=== PATIENT | male | born 1950 | race Caucasian/White ===

== ENCOUNTER 2017-05-25 11:26 | Inpatient (IN) | payer OTHER ==
[2017-05-25] MEDS ORDERED: ASPIRIN 81 MG CHEWABLE TAB ONE (11:31)
[2017-05-25] MEDS ORDERED: ASPIRIN 81 MG CHEWABLE TAB PO ONE (11:32)
[2017-05-25] MEDS ORDERED: NS 500 ML IV ONE (11:32)
--- NOTE | 2017-05-25 11:33 | EDPHY ---
H & P HPI/ROS: HPI CHIEF COMPLAINT: Chest pain recent cardiac stent HISTORY OF PRESENT ILLNESS: This patient is 66-year-old male, significant past medical history for coronary artery disease with a recent stent in his LAD he tells me 2 months ago. He is followed by Dr. Medina. Patient presents emergency room with chest pain. He states on Friday notice some chest discomfort. However today got worse substernal dull ache radiating to his left shoulder. He does tell me also when he takes a deep breath in he has pain. However his dull ache is constant now radiates to his left shoulder. Last night he tells me he did have some left arm pain. Past Medical History: Coronary disease with 1 stent, hypertension, hyperlipidemia Past Surgical History: Cardiac stent Social History: Denies daily use of drugs alcohol tobacco products Family History: Noncontributory ROS REVIEW OF SYSTEMS: A comprehensive 10 point review of systems is otherwise negative aside from elements mentioned in the history of present illness. Exam Constitutional appears well nontoxic, triage nursing summary reviewed, vital signs reviewed, awake/alert. Eyes normal conjunctivae and sclera, EOMI, PERRLA. HENT normal inspection, atraumatic, moist mucus membranes, no epistaxis, neck supple/ no meningismus, no raccoon eyes. Respiratory clear to auscultation bilaterally, normal breath sounds, no respiratory distress, no wheezing. Cardiovascular rate normal, regular rhythm, no murmur, no edema, distal pulses normal. Gastrointestinal soft, non-tender, no rebound, no guarding, normal bowel sounds, no distension, no pulsatile mass. Genitourinary no CVA tenderness. Musculoskeletal no midline vertebral tenderness, full range of motion, no calf swelling, no tenderness of extremities, no meningismus, good pulses, neurovascularly intact. Skin pink, warm, & dry, no rash, skin atraumatic. Neurologic awake, alert and oriented x 3, AAOx3, moves all 4 extremities equally, motor intact, sensory intact, CN II-XII intact, normal cerebellar, normal vision, normal speech. Psychiatric normal mood/affect. Heme/Lymph/Immune no lymphadenopathy. Differential diagnosis includes but is not limited to: ACS, atypical chest pain , pneumothorax, pneumonia, pulmonary embolism, aortic dissection, congestive heart failure, tumor, musculoskeletal pain, esophageal pain, GERD, peptic ulcer disease, pancreatitis Medical Decision Making: Plan for this patient full-dose aspirin, full school lunch monitor, EKG, chest x-ray, blood work, nitroglycerin. Re-evaluation: EKG interpretation by me on record in [employer] system. Impression time of EKG 11:35 a.m., this is sinus rhythm rate of 68, Q-waves in a anterior leads V1 V2 V3 very similar to his previous EKG dated 11/04/2014 I do not appreciate acute infarct on this current EKG there is no ST elevation SC. 1212: Patient receive full-dose aspirin here. Patient also had 2 nitroglycerin tabs was completely dissolved this chest pain. Currently chest pain 0/10. Patient's EKG is nonischemic or unchanged from previous EKG. Blood work pending at this time. ED x-ray chest one view: Negative for acute cardiopulmonary disease. Plan for this patient be admission to [facility] hospitalization for chest pain evaluation. Patient has risk factors with recent stent, underlying coronary artery disease, age, hyperlipidemia. Atypical chest pain story. 1213: Currently at this time this patient hemodynamically stable no acute distress resting comfortably. 1240PM: Patient is chest pain-free at this time. Patient be appropriately transferred over to [facility] PCU for chest pain evaluation. Patient agree for transfer by EMS. Patient agrees for transfer to the hospital. Spoke with Roseanne FIELDS, was signed this patient to Dr. Bey. Source: Patient Constitutional: Initial Vital Signs Temperature (C) 36.8 C 05/25/17 11:32 Heart Rate 76 05/25/17 11:32 Respiratory Rate 20 05/25/17 11:32 Blood Pressure 186/134 H 05/25/17 11:32 O2 Sat (%) 97 05/25/17 11:32 O2 Delivery Mode Nasal Cannula O2 (L/minute) 1 Allergies/Adverse Reactions: No Known Allergies Allergy (Verified 05/25/17 11:28) Home Medications: Medication Instructions Recorded Metoprolol Tartrate [Lopressor] 50 mg PO 09/09/12 Aspirin [Aspirin 81mg (OTC)] 81 mg PO DAILY 11/05/12 Cholesterol Med 11/05/12 Lisinopril [Zestril 10 mg (RX)] 10 mg PO DAILY 11/05/12 Vit D 11/05/12 Atorvastatin Calcium 05/25/17 Carvedilol 05/25/17 Hydrochlorothiazide 05/25/17 Plavix 05/25/17 Medical Decision Making - Diagnostics Imaging Results: Imaging Impressions Chest X-Ray 05/25/17 11:32 Impression: Clear lungs. Negative portable chest. - Data Points Laboratory Results: Laboratory Results 05/25/17 11:40 05/25/17 11:40 05/25/17 05/25/17 05/25/17 11:40 11:40 11:40 WBC 7.84 10^3/uL 10^3/uL (3.80-9.50) RBC 4.74 10^6/uL 10^6/uL (4.40-6.38) Hgb 16.7 g/dL g/dL (13.7-17.5) Hct 44.8 % % (40.0-51.0) MCV 94.5 fL fL (81.5-99.8) MCH 35.2 pg H pg (27.9-34.1) MCHC 37.3 g/dL H g/dL (32.4-36.7) RDW 11.7 % % (11.5-15.2) Plt Count 246 10^3/uL 10^3/uL (150-400) MPV 9.4 fL fL (8.7-11.7) Neut % (Auto) 54.5 % % (39.3-74.2) Lymph % (Auto) 31.4 % % (15.0-45.0) Cloud % (Auto) 9.4 % % (4.5-13.0) Eos % (Auto) 3.4 % % (0.6-7.6) Baso % (Auto) 1.0 % % (0.3-1.7) Nucleat RBC Rel Count 0.0 % % (0.0-0.2) Absolute Neuts (auto) 4.27 10^3/uL 10^3/uL (1.70-6.50) Absolute Lymphs (auto) 2.46 10^3/uL 10^3/uL (1.00-3.00) Absolute Monos (auto) 0.74 10^3/uL 10^3/uL (0.30-0.80) Absolute Eos (auto) 0.27 10^3/uL 10^3/uL (0.03-0.40) Absolute Basos (auto) 0.08 10^3/uL 10^3/uL (0.02-0.10) Absolute Nucleated RBC 0.00 10^3/uL 10^3/uL (0-0.01) Immature Gran % 0.3 % % (0.0-1.1) Immature Gran # 0.02 10^3/uL 10^3/uL (0.00-0.10) PT 13.0 SEC SEC (12.0-15.0) INR 1.01 (0.83-1.16) APTT 30.1 SEC SEC (23.0-38.0) D-Dimer < 0.27 ug/mLFEU ug/mLFEU (0.00-0.50) Sodium 141 mEq/L mEq/L (134-144) Potassium 4.4 mEq/L mEq/L (3.5-5.2) Chloride 107 mEq/L mEq/L (97-110) Carbon Dioxide 23 mEq/l mEq/l (22-31) Anion Gap 11 mEq/L mEq/L (8-16) BUN 16 mg/dL mg/dL (7-23) Creatinine 1.2 mg/dL mg/dL (0.7-1.3) Estimated GFR > 60 Glucose 93 mg/dL mg/dL (70-100) Calcium 8.8 mg/dL mg/dL (8.5-10.4) Magnesium 2.0 mg/dL mg/dL (1.6-2.3) Total Bilirubin 0.9 mg/dL mg/dL (0.1-1.4) Conjugated Bilirubin 0.3 mg/dL mg/dL (0.0-0.5) Unconjugated Bilirubin 0.6 mg/dL mg/dL (0.0-1.1) AST 29 IU/L IU/L (17-59) ALT 37 IU/L IU/L (21-72) Alkaline Phosphatase 104 IU/L IU/L (38-126) Creatine Kinase 57 IU/L IU/L (0-224) CK-MB (CK-2) Fraction 1.64 ng/mL ng/mL (0-4.55) Troponin I < 0.012 ng/mL ng/mL (0-0.034) NT-Pro-B Natriuret Pep 107 pg/mL pg/mL (0-125) Total Protein 6.7 g/dL g/dL (6.3-8.2) Albumin 3.8 g/dL g/dL (3.5-5.0) Lipase 107.0 IU/L IU/L (23-300) Medications Given: Discontinued Medications Aspirin (Aspirin) 324 mg PO EDNOW ONE Stop: 05/25/17 11:33 Last Admin: 05/25/17 11:35 Dose: 324 mg Sodium Chloride (Ns) 500 mls @ 1,000 mls/hr IV ONCE ONE PRN Reason: Protocol Stop: 05/25/17 12:01 Last Admin: 05/25/17 11:44 Dose: 500 mls Nitroglycerin (Nitrostat) 0.4 mg SL Q5M PRN PRN Reason: Chest Pain Stop: 05/25/17 11:43 Last Admin: 05/25/17 11:49 Dose: 0.4 mg Departure - Departure Disposition: [facility] Inpatient Acute Clinical Impression: Chest pain Qualifiers: Chest pain type: unspecified Qualified Code(s): R07.9 - Chest pain, unspecified Condition: Fair Referrals: Aminata Leo PA [Primary Care Provider] - As per Instructions
[2017-05-25] MEDS: NITROGLYCERIN 0.4 MG BTL SL PRN ×2 (11:44→11:49)
[2017-05-25 11:48] LABS: % IMMATURE GRANULYOCYTES 0.3 % (0.0-1.1); ABSOLUTE IMMATURE GRANULOCYTES 0.02 10^3/uL (0.00-0.10); ADD DIFF? NO; ADD MORPH? NO; ADD SCAN? NO; FRAGMENT RBC FLAG 0 (0-99); LEFT SHIFT FLG 0 (0-99); MEAN CELL VOLUME 94.5 fL (81.5-99.8); MEAN PLATELET VOLUME 9.4 fL (8.7-11.7)
[2017-05-25 11:51] LABS: ATYPICAL LYMPHOCYTE FLAG 20 (0-99); HEMATOCRIT 44.8 % (40.0-51.0); HEMOGLOBIN 16.7 g/dL (13.7-17.5); LIPEMIA HEMOLYSIS FLAG 90 (0-99); MEAN CELL HEMOGLOBIN 35.2 pg (27.9-34.1); MEAN CELL HEMOGLOBIN CONCENTR. 37.3 g/dL (32.4-36.7); PLATELET CLUMPS FLAG 0 (0-99); PLATELET COUNT 246 10^3/uL (150-400); RED BLOOD CELL COUNT 4.74 10^6/uL (4.40-6.38); RED CELL DISTRIBUTION WIDTH 11.7 % (11.5-15.2)
[2017-05-25 12:01] LABS: APTT 30.1 SEC (23.0-38.0); INR 1.01 (0.83-1.16)
[2017-05-25 12:07] LABS: ALANINE AMINOTRANSFERASE 37 IU/L (21-72); ALBUMIN 3.8 g/dL (3.5-5.0); ALKALINE PHOSPHATASE 104 IU/L (38-126); ANION GAP 11 mEq/L (8-16); ASPARTATE AMINOTRANSFERASE 29 IU/L (17-59); BILIRUBIN,TOTAL 0.9 mg/dL (0.1-1.4); BILIRUBIN-CONJUGATED 0.3 mg/dL (0.0-0.5); BILIRUBIN-UNCONJUGATED 0.6 mg/dL (0.0-1.1); CALCIUM 8.8 mg/dL (8.5-10.4); CARBON DIOXIDE 23 mEq/l (22-31); CHLORIDE 107 mEq/L (97-110); CREATININE 1.2 mg/dL (0.7-1.3); GLOMERULAR FILTRATION RATE > 60; GLUCOSE 93 mg/dL (70-100); POTASSIUM 4.4 mEq/L (3.5-5.2); SODIUM 141 mEq/L (134-144); TOTAL PROTEIN 6.7 g/dL (6.3-8.2)
[2017-05-25 12:14] LABS: CREATINE KINASE-MB FRACTION 1.64 ng/mL (0-4.55); TROPONIN I < 0.012 ng/mL (0-0.034)
--- NOTE | 2017-05-25 12:38 | CPEKG ---
Heart Rate: 68 RR Interval: 882 P-R Interval: 180 QRSD Interval: 86 QT Interval: 396 QTC Interval: 422 P [place]: 33 QRS [place]: 29 T Wave [place]: 17 EKG Severity - NORMAL ECG - EKG Impression: SINUS RHYTHM Electronically Signed By: Yeyo Rivera 29-May-2017 15:51:12
[2017-05-25] MEDS ORDERED: ACETAMINOPHEN 325 MG TAB PO PRN (15:00)
[2017-05-25] MEDS ORDERED: ONDANSETRON DISINTEGRATING 4 MG TAB PO PRN (15:00)
[2017-05-25] MEDS ORDERED: ONDANSETRON 4 MG/2 ML VIAL IVP PRN (15:00)
--- NOTE | 2017-05-25 15:24 | PDCPHP ---
History and Physical Chief Complaint: chest pain - History of Present Illness This is a 66 yo male with h/o CAD, ischemic cardiomyopathy, htn and hld with recent LAD stent placed in 02/2017 at [facility], who presented to [facility] with chest pain. He is followed by Dr. Rivera. Since his stent placement, he reports daily chest pain, usually in the morning. Several days prior to admission, he began to feel poorly, with a worsening dull ache in his chest. This is associated with nausea and can radiate to his left arm. He also c/o some SOB and describes a pleuritic chest pain at times, which he describes as pinching sensation. He denies diaphoresis. His pain is not necessarily associated with exertion. He denies orthopnea, PND or peripheral edema. He reports he has taken nitrates in the past and thinks he ran out of this medication shortly before his symptoms started. However, per review of [place] notes, I cannot confirm that he has taken nitrates. He is compliant with dual anti-platelet therapy. In the ED, he received a full dose ASA. Initial EKG and trop are negative. He is directly admitted to the PCU for further evaluation. Cardiac Risk Factors: hypertension (>140/90), lipidemia, family history of premature CAD, age > 65, male Timing/Duration: Days Severity: mild, moderate Location: substernal, shoulder Activities at Onset: none Modifying Factors: improves with: rest Associated Symptoms: nausea/vomiting, shortness of breath Additional Information: recent similar symptoms History Information - Allergies/Home Medication List Allergies/Adverse Reactions: No Known Allergies Allergy (Verified 05/25/17 11:28) Home Medications: Aspirin [Aspirin 81mg (OTC)] 81 mg PO DAILY 11/05/12 [Last Taken 05/25/17] Cholecalciferol Vit D3 [Vitamin D3 (*)] 5,000 units PO DAILY 11/05/12 [Last Taken 05/25/17] Atorvastatin Calcium [Lipitor 40 mg (*)] 40 mg PO DAILY 05/25/17 [Last Taken 01/10] Carvedilol [Coreg (*)] 3.125 mg PO BIDMEAL 05/25/17 [Last Taken 05/25/17 08:00] Clopidogrel Bisulfate [Plavix (*)] 75 mg PO DAILY 05/25/17 [Last Taken 05/25/17] Hydrochlorothiazide [HCTZ (*)] 25 mg PO DAILY 05/25/17 [Last Taken 05/25/17] Losartan Potassium [Cozaar] 100 mg PO DAILY 05/25/17 [Last Taken 05/25/17] I have personally reviewed and updated: family history, medical history, social history, surgical history - Past Medical History coronary artery disease, hypertension, hyperlipidemia Additional medical history: sleep apnea - Surgical History Additional surgical history: angiogram stent placement in 02/2017, hernia surgery - Family History Positive for: male first degree with history of premature CAD, myocardial infarction - Social History Smoking Status: Former smoker Alcohol Use: Occasionally Drug Use: None Additional social history: Lives with and kids. Works as a photographer motion picture. Quit smoking 25 yrs ago. Review of Systems ROS: 10pt was reviewed & negative except for what was stated in HPI & below [place] Risk Evaluation age greater or equal to 65: yes greater or equal to 3 CAD risk factors: yes known CAD(stenosis greater or eqaul to 50%): yes ASA use in past 7 days: yes severe angina(greater or equal to 2 episodes in 24hrs): yes EKG ST changes greater or equal to 0.5mm: no positive cardiac marker: no Total Score: 5 [place] Score: 26.2% risk Physical Exam Temp Pulse Resp BP Pulse Ox 36.4 C 60 16 163/95 H 95 05/25/17 14:18 05/25/17 14:18 05/25/17 14:18 05/25/17 14:18 05/25/17 14:18 O2 (L/minute) 1 Constitutional: no apparent distress Eyes: PERRL Ears, Nose, Mouth, Throat: moist mucous membranes Cardiovascular: regular rate and rhythym, no murmur, rub, or gallop Respiratory: no respiratory distress, clear to auscultation Gastrointestinal: normoactive bowel sounds, soft, non-tender abdomen Skin: warm Musculoskeletal: full muscle strength Neurologic: AAOx3 Psychiatric: interacting appropriately Lab Data & Imaging Review 05/25/17 11:40 05/25/17 11:40 WBC 7.84 10^3/uL (3.80-9.50) 05/25/17 11:40 RBC 4.74 10^6/uL (4.40-6.38) 05/25/17 11:40 Hgb 16.7 g/dL (13.7-17.5) 05/25/17 11:40 Hct 44.8 % (40.0-51.0) 05/25/17 11:40 MCV 94.5 fL (81.5-99.8) 05/25/17 11:40 MCH 35.2 pg (27.9-34.1) H 05/25/17 11:40 MCHC 37.3 g/dL (32.4-36.7) H 05/25/17 11:40 RDW 11.7 % (11.5-15.2) 05/25/17 11:40 Plt Count 246 10^3/uL (150-400) 05/25/17 11:40 MPV 9.4 fL (8.7-11.7) 05/25/17 11:40 Neut % (Auto) 54.5 % (39.3-74.2) 05/25/17 11:40 Lymph % (Auto) 31.4 % (15.0-45.0) 05/25/17 11:40 [place] % (Auto) 9.4 % (4.5-13.0) 05/25/17 11:40 Eos % (Auto) 3.4 % (0.6-7.6) 05/25/17 11:40 Baso % (Auto) 1.0 % (0.3-1.7) 05/25/17 11:40 Nucleat RBC Rel Count 0.0 % (0.0-0.2) 05/25/17 11:40 Absolute Neuts (auto) 4.27 10^3/uL (1.70-6.50) 05/25/17 11:40 Absolute Lymphs (auto) 2.46 10^3/uL (1.00-3.00) 05/25/17 11:40 Absolute Monos (auto) 0.74 10^3/uL (0.30-0.80) 05/25/17 11:40 Absolute Eos (auto) 0.27 10^3/uL (0.03-0.40) 05/25/17 11:40 Absolute Basos (auto) 0.08 10^3/uL (0.02-0.10) 05/25/17 11:40 Absolute Nucleated RBC 0.00 10^3/uL (0-0.01) 05/25/17 11:40 Immature Gran % 0.3 % (0.0-1.1) 05/25/17 11:40 Immature Gran # 0.02 10^3/uL (0.00-0.10) 05/25/17 11:40 PT 13.0 SEC (12.0-15.0) 05/25/17 11:40 INR 1.01 (0.83-1.16) 05/25/17 11:40 APTT 30.1 SEC (23.0-38.0) 05/25/17 11:40 D-Dimer < 0.27 ug/mLFEU (0.00-0.50) 05/25/17 11:40 Sodium 141 mEq/L (134-144) 05/25/17 11:40 Potassium 4.4 mEq/L (3.5-5.2) 05/25/17 11:40 Chloride 107 mEq/L (97-110) 05/25/17 11:40 Carbon Dioxide 23 mEq/l (22-31) 05/25/17 11:40 Anion Gap 11 mEq/L (8-16) 05/25/17 11:40 BUN 16 mg/dL (7-23) 05/25/17 11:40 Creatinine 1.2 mg/dL (0.7-1.3) 05/25/17 11:40 Estimated GFR > 60 05/25/17 11:40 Glucose 93 mg/dL (70-100) 05/25/17 11:40 Calcium 8.8 mg/dL (8.5-10.4) 05/25/17 11:40 Magnesium 2.0 mg/dL (1.6-2.3) 05/25/17 11:40 Total Bilirubin 0.9 mg/dL (0.1-1.4) 05/25/17 11:40 Conjugated Bilirubin 0.3 mg/dL (0.0-0.5) 05/25/17 11:40 Unconjugated Bilirubin 0.6 mg/dL (0.0-1.1) 05/25/17 11:40 AST 29 IU/L (17-59) 05/25/17 11:40 ALT 37 IU/L (21-72) 05/25/17 11:40 Alkaline Phosphatase 104 IU/L (38-126) 05/25/17 11:40 Creatine Kinase 57 IU/L (0-224) 05/25/17 11:40 CK-MB (CK-2) Fraction 1.64 ng/mL (0-4.55) 05/25/17 11:40 Troponin I < 0.012 ng/mL (0-0.034) 05/25/17 11:40 NT-Pro-B Natriuret Pep 107 pg/mL (0-125) 05/25/17 11:40 Total Protein 6.7 g/dL (6.3-8.2) 05/25/17 11:40 Albumin 3.8 g/dL (3.5-5.0) 05/25/17 11:40 Lipase 107.0 IU/L (23-300) 05/25/17 11:40 Visualized and Interpreted Chest x-ray results: Yes Chest X-Ray results: no infiltrate, normal Visualized and Interpreted EKG results: Yes EKG Interpretation: Positive for: normal sinsus rhythm Assessment and Plan Assessment: Chest pain in 66 yo male with h/o CAD, ischemic cardiomyopathy, hypertension, hyperlipidemia and KINZA. LAD stent placed 02/2017, compliant with DAPT. He reportedly had another vessel with 70% stenosis which was not intervened upon. Echo from 03/2017 reviewed - nl EF of 60% without WMA. Initial EKG and trop are negative. Pt appears comfortable. Suspect ongoing anginal symptoms. Plan: * admit as observation to PCU * continuous telemetry to monitor for ST segment changes * monitor vital signs every 4 hours * continue dual-antiplatelet therapy, BB, statin * morphine sulfate IV and nitroglycerin sublingual as needed for chest pain, consider addition of imdur * repeat EKG now to assess for dynamic changes and as needed for recurrent chest pain * repeat troponin in 4-6 hours after onset of chest pain * cardiology is consulted and will evaluate patient to determine need for invasive testing
--- NOTE | 2017-05-25 15:28 | CPEKG ---
Heart Rate: 64 RR Interval: 938 P-R Interval: 184 QRSD Interval: 84 QT Interval: 432 QTC Interval: 446 P [place]: 16 QRS [place]: 30 T Wave [place]: 20 EKG Severity - NORMAL ECG - EKG Impression: SINUS RHYTHM Electronically Signed By: Maximilian Valerio 26-May-2017 08:09:01
[2017-05-25] MEDS ORDERED: NITROGLYCERIN 0.4 MG BTL SL PRN (15:50)
--- NOTE | 2017-05-25 16:26 | PDCARPN ---
Cardiology Progress Note Assessment/Plan: 66-year-old male with a history of CAD s/p PCI of a high grade LAD lesion at [facility] on 02/22/17. He has residual ostial diagonal disease. Presents to the hospital with chest discomfort this morning located substernal and described as a pulsating sensation "like heart is pumping too hard". Had similar symptoms at the time of his presentation to [facility] and reports that they have never completely resolved. No associated diaphoresis. Some shortness of breath/dyspnea on exertion which he relates to deconditioning. Initial ECG, troponin, and BNP all normal. Serial cardiac enzymes. NPO after midnight for cath versus stress evaluation tomorrow. 05/25/17 16:25 Subjective: Morning chest pains getting worse. Objective: Vital Signs (8 Hrs) Temp Pulse Resp BP Pulse Ox 05/25/17 14:18 36.4 C 60 16 163/95 H 95 05/25/17 13:36 36.8 C 62 16 157/104 H 99 Intake/Output (24 Hrs) 05/24/17 05/25/17 05/26/17 05:59 05:59 05:59 Intake Total 500 Balance 500 Intake: IV Infused (ml) 500 Other: Weight 100.3 kg Result Diagrams: 05/25/17 11:40 05/25/17 11:40 Cardiac Labs: Cardiac Lab Results (72 Hrs) 05/25/17 15:51 Troponin I < 0.012 - Physical Exam Constitutional: no apparent distress, obese Eyes: anicteric sclera Ears, Nose, Mouth, Throat: moist mucous membranes Cardiovascular: regular rate and rhythm, no murmurs, no rubs, no gallops Respiratory: clear to auscultate bilat Gastrointestinal: normoactive bowel sounds, no tenderness, no masses Skin: no rashes, no edema Neurologic: AAOx3 Psychiatric: not anxious ICD10 Worksheet Patient Problems: Problems Problem Status Onset Chest pain Acute
[2017-05-25] MEDS: CARVEDILOL 3.125 MG TAB PO SCH (17:55)
[2017-05-26] MEDS: ASPIRIN 81 MG CHEWABLE TAB PO SCH (08:15)
[2017-05-26] MEDS: LOSARTAN POTASSIUM 50 MG TAB PO SCH (08:15)
[2017-05-26] MEDS: ATORVASTATIN CALCIUM 40 MG TAB PO SCH (08:15)
[2017-05-26] MEDS ORDERED: NON-FORMULARY NEW DRUG (Losartan Potassium [Cozaar] 100 MG) PO SCH (09:00)
[2017-05-26] MEDS: CLOPIDOGREL BISULFATE 75 MG TAB PO SCH (10:37)
[2017-05-26] MEDS: CARVEDILOL 3.125 MG TAB PO SCH ×2 (10:56→18:54)
[2017-05-26] MEDS: HYDROCHLOROTHIAZIDE 25 MG TAB PO SCH (11:00)
[2017-05-26] MEDS ORDERED: FAMOTIDINE 20 MG TAB PO ONE (11:02)
[2017-05-26] MEDS ORDERED: NS 1,000 ML IV ONE (11:02)
[2017-05-26] MEDS ORDERED: ASPIRIN EC 325 MG TAB PO ONE (11:02)
[2017-05-26] MEDS ORDERED: DIAZEPAM 5 MG TAB PO ONE (11:02)
[2017-05-26] MEDS ORDERED: diphenhydrAMINE 25 MG CAP PO ONE (11:02)
[2017-05-26] MEDS ORDERED: IOPAMIDOL (ISOVUE-370) 150 ML BTL IV ONE ×2 (11:17→11:53)
[2017-05-26] MEDS ORDERED: fentaNYL 100 MCG/2 ML INJ ONE ×2 (11:17→11:53)
[2017-05-26] MEDS ORDERED: LIDOCAINE 1% 300 MG/30 ML SDV ONE ×2 (11:17→14:54)
[2017-05-26] MEDS ORDERED: MIDAZOLAM 2 MG/2 ML VIAL ONE ×2 (11:17→11:55)
[2017-05-26] MEDS ORDERED: NITROGLYCERIN 1,500 MCG/15 ML VIAL MISC ONE (11:51)
[2017-05-26] MEDS ORDERED: BIVALIRUDIN 250 MG/5 ML VIAL IV ONE (11:51)
--- NOTE | 2017-05-26 12:32 | PDCARPN ---
Cardiology Progress Note Chief Complaint: Continued complaints of chest discomfort (very similar to that which was noted prior to PCI of the LAD 02/22/17) Assessment/Plan: Assessment: Patient is a 66 y/o male with history of CAD s/p recent PCI to the LAD ([facility] 02/22/17), with KINZA, HTN, and HLP, who presented to [facility] with complaints of chest discomfort. Discomfort was reportedly very similar to that which was being noted at the time of the intervention to the LAD. Reports of "ischaemic cardiomyopathy" were also noted in the admission noted. Discussion with patient , who typically follows with me in the outpatient setting about options, of which there are two: (1) Non invasive stress testing and (2) repeat angiography. More definitive answer would come from the angiography. Compliance with medical therapy has been good (ASA and Plavix in particular). Plan: Given the similarity of the symptoms, we have opted to repeat angiography. Patient with understanding of the risks and benefits. Further recommendations after testing has been completed. Subjective: Chest pain with associated PND and orthopnea. Reviewed/Discussed With: hospitalist, multidisciplinary team Objective: Vital Signs (8 Hrs) Temp Pulse Resp BP Pulse Ox 05/26/17 11:35 36.5 C 65 20 143/87 H 93 05/26/17 10:56 64 143/87 H 05/26/17 07:36 36.5 C 70 12 133/74 H 94 Intake/Output (24 Hrs) 05/25/17 05/26/17 05/27/17 05:59 05:59 05:59 Intake Total 1750 Output Total 1900 600 Balance -150 -600 Intake: Oral (ml) 1250 IV Infused (ml) 500 Output: Urine (ml) 1900 600 Toilet 1900 Urinal 600 Other: Weight 100.3 kg Number of Voids Toilet 3 Result Diagrams: 05/25/17 11:40 05/25/17 11:40 Cardiac Labs: Cardiac Lab Results (72 Hrs) 05/25/17 05/25/17 21:38 15:51 Troponin I < 0.012 < 0.012 EKG: Normal sinus rhythm without appreciable ST/T wave changes noted. Telemetry: Normal sinus rhythm - Physical Exam Constitutional: WDWN, healthy appearing, obese, apparent distress (chest pains continue to be noted (2 at the time of evaluation)) Eyes: PERRL, EOMI Ears, Nose, Mouth, Throat: moist mucous membranes Cardiovascular: regular rate and rhythm, no murmurs, no rubs, no gallops Peripheral Pulses: 2+: dorsalis-pedis (R), dorsalis-pedis (L) Respiratory: clear to auscultate bilat, no crackles, no wheezes Gastrointestinal: normoactive bowel sounds Skin: no rashes, no edema Musculoskeletal: no muscular tenderness Neurologic: AAOx3, CN II-XII grossly intact Psychiatric: cooperative, interactive, following commands ICD10 Worksheet Patient Problems: Problems Problem Status Onset Chest pain Acute
--- NOTE | 2017-05-26 12:42 | PDDXCAT ---
Diagnostic Cath Note - . Date: 05/26/17 Point Of Care Technician: Miguel Indication: CCC Class III and IV angina on medical treatment - Procedure Access: right groin Procedure: left heart catheterization, coronary angiography, left ventriculogram - Materials Left Heart Cath size: 6F Left Heart Cath materials: standard multipack (JL4, JR4, pigtail) - Findings-Left Heart Catheterization LM: Short vessel with bifurcation into the LAD and LCX systems. No appreciable luminal irregularities noted. LAD: Medium sized vessel with large principal diagonal. Questionable luminal irregularities just proximal to the stent (eccentric lesion is suggested given haziness noted in some views, but not others). There were two septal perforators that were jailed by stent placement to the LAD as well. LCX: Medium sized vessel with two small OMs (1/2) in the proximal vessel. The third OM is large with branches. No luminal irregularities were noted. Codominant supply to the PDA system. RCA: Small to medium sized vessel without critical luminal irregularites noted. EDP: 25 mm Hg LVEF: 50-55% Wall motion: Mild anterior wall hypokinesis was noted Complications: none ... access was low secondary to pains from recent angiography Estimated blood loss: <50ml Closure method: manual pressure Assessment: 66 y/o male with history of CAD s/p recent PCI to the LAD, HTN, KINZA , and HLP, with what appears to be some haziness to the proximal portion of the stent. No "new" lesions were identified. There were two septal perforators that were jailed by the placement of the LAD stent, and they could be contributing to the symptoms that are being noted (but no troponin leak or ECG changes were noted). Plan: Dr. Mell Mathis to perform IVUS of the LAD to determine if there are lesions proximal to the stented region. Intervention: pending Patient Problems: Problems Problem Status Onset Chest pain Acute
--- NOTE | 2017-05-26 14:29 | CPIP ---
[f rep st] INVASIVE CARDIAC PROCEDURE DATE OF PROCEDURE: 05/26/2017 PROCEDURE: Intravascular ultrasound of the left anterior descending. INDICATION: Mr. Omar Caballero was taken the catheterization laboratory by Dr. Yeyo Rivera because of an indication of angina post stent implantation. He was noted to have ostial stenosis of 2 sept al branches which could be responsible for his angina; however, there was an area just proximal to t he stent that Dr. Rivera was concerned may represent an inflow problem into the stents, so I was ask ed us to see the patient for intraoperative consultation for intravascular ultrasound of the LAD keena nt. DESCRIPTION OF PROCEDURE: The 6-Palauan sheath had already been established by Dr. Rivera in the com mon femoral artery. J-wire was advanced under direct fluoroscopic guidance into the ascending thora cic aorta. A 6-Palauan EBU 3.5 guiding catheter was used for guide catheter support. A 0.014 Intuit ion wire was advanced across the lesion in the LAD and the stented segment, and the patient underwen t intravascular ultrasound of the LAD. Intravascular ultrasound demonstrated that the LAD lumen is widely patent. However, the patient has severe atherosclerosis often with greater than 50% of the t otal area of the vessel within the external elastic lamina. External elastic lamina was noted to be full of eccentric and concentric plaque. The stented segment of the vessel shows good stent geomet ry with good [id number] wall apposition along the entire length of the stent. There was no ness dence of flow-limiting obstruction, dissection or thrombus proximal or distal to the stented segment . The LAD was widely patent. The patient had the procedure performed with a bolus and infusion of Angiomax documented with an ACT greater than 300 prior to instrumentation of the coronary. FINAL IMPRESSION: 1. Intravascular ultrasound shows evidence of severe atherosclerosis with often greater than 50% pl aque area narrowing of the blood vessel throughout the proximal and mid left anterior descending. T his plaque development does place the patient at risk for heart attack and angina. 2. No evidence of flow-limiting obstruction, dissection, thrombus or subacute stent thrombosis is i dentified on intravascular ultrasound of a left anterior descending stent. I would suspect the waylon ent's source of angina is most likely septal perforators which were partially compromised by stent i mplantation. Copy requested to: [facility] /[id number]/MODL
[2017-05-26] MEDS ORDERED: HYDROCODONE/APAP 5/325 TAB PO PRN (16:22)
[2017-05-26] MEDS ORDERED: NITROGLYCERIN 0.4 MG BTL SL PRN (16:22)
[2017-05-26] MEDS ORDERED: ATROPINE SULFATE 1 MG/10 ML SYR IVP PRN (16:22)
[2017-05-26] MEDS ORDERED: OXYCODONE/APAP 5/325 TAB PO PRN (16:22)
[2017-05-26] MEDS ORDERED: ONDANSETRON 4 MG/2 ML VIAL IVP PRN (16:22)
--- NOTE | 2017-05-26 17:18 | HOSPPROG ---
Hospitalist Progress Note Assessment/Plan: 66 yo male with CAD and recent LAD stent placed in 02/2017 presents with ongoing chest pain, suspicious for anginal symptoms. Chest pain - EKG non-ischemic. Trops neg x3. Pt cath'd this am- no obstructive disease at LAD, but "jailed" septal perforators suspected source of angina. -start Imdur 30 mg daily, up-titrate as tolerated -cont DAPT, BB, statin Hypertension - poorly controlled on arrival. Improved with addition of low dose Norvasc. -dc Norvasc in favor of nitrates as above -consider up-titration of coreg at dc if BP's remain above goal Hyperlipidemia - cont statin KINZA - pt awaiting CPAP in outpt setting Full code DVT PPLX - SCD's, ambulation. If he doesn't dc in am, would add Lovenox Dispo - change to inpt due to ongoing monitoring needed post-cath, home in am Subjective: Pt feels better this am. No significant CP. No SOB. Objective: Vital Signs Temp Pulse Resp BP Pulse Ox 36.5 C 65 20 143/87 H 93 05/26/17 11:35 05/26/17 11:35 05/26/17 11:35 05/26/17 11:35 05/26/17 11:35 05/25/17 05/26/17 05/27/17 05:59 05:59 05:59 Intake Total 1750 Output Total 1900 600 Balance -150 -600 PT 13.0 SEC (12.0-15.0) 05/25/17 11:40 INR 1.01 (0.83-1.16) 05/25/17 11:40 - Physical Exam Constitutional: no apparent distress Eyes: PERRL Ears, Nose, Mouth, Throat: moist mucous membranes Cardiovascular: regular rate and rhythym Respiratory: no respiratory distress, clear to auscultation Gastrointestinal: normoactive bowel sounds, soft, non-tender abdomen Skin: warm Musculoskeletal: full muscle strength Neurologic: AAOx3 Psychiatric: interacting appropriately ICD10 Worksheet Patient Problems: Problems Problem Status Onset Chest pain Acute
[2017-05-27 08:34] VITALS: BP 143/88; PULSE 68; RESP 15; TEMP 97.7; O2SAT 97
[2017-05-27] MEDS ORDERED: ISOSORBIDE MONONITRATE 30 MG TAB.SR PO SCH (09:00)
--- NOTE | 2017-05-27 09:35 | PDCARPN ---
Cardiology Progress Note Chief Complaint: Patient doing well today. Good sleep overnight Assessment/Plan: Assessment: 05-27-17 No cardiovascular complaints this morning. Ongoing right groin pains (no worse) , and patient voicing that he has concerns about this being the area where hernia surgery was repaired in the past. Good sleep overnight. Patient wanting to go home. Discussion about the angiogram findings from day prior ( and our concerns that some of the chest pains may be secondary to "jailed" septal perforators that were lost with the placement of the LAD stent. 05-26-17 Patient is a 66 y/o male with history of CAD s/p recent PCI to the LAD ([facility] 02/22/17), with KINZA, HTN, and HLP, who presented to [facility] with complaints of chest discomfort. Discomfort was reportedly very similar to that which was being noted at the time of the intervention to the LAD. Reports of "ischaemic cardiomyopathy" were also noted in the admission noted. Discussion with patient , who typically follows with me in the outpatient setting about options, of which there are two: (1) Non invasive stress testing and (2) repeat angiography. More definitive answer would come from the angiography. Compliance with medical therapy has been good (ASA and Plavix in particular). Plan: (1) From a cardiovascular standpoint, the patient can be discharged to home (2) Would add low dose, long acting nitrates (30 mg per day) of the long acting formulation (3) Outpatient follow up with cardiology in 7-10 days (4) Would consider outpatient consultation with surgery given voiced concerns about discomfort to the location of prior hernia surgery (5) Maintain outpatient medical therapies as at present Subjective: No cardiovascular complaints Reviewed/Discussed With: multidisciplinary team Objective: Vital Signs (8 Hrs) Temp Pulse Resp BP Pulse Ox 05/27/17 08:00 36.5 C 68 15 143/88 H 97 05/27/17 04:00 36.6 C 72 16 130/81 H 94 Intake/Output (24 Hrs) 05/26/17 05/27/17 05/28/17 05:59 05:59 05:59 Intake Total 300 Output Total 525 Balance -225 Intake: Oral (ml) 300 Output: Urine (ml) 525 Urinal 525 Other: Number of Voids Toilet 2 Urinal 3 Result Diagrams: 05/25/17 11:40 05/25/17 11:40 Telemetry: normal sinus rhythm - Physical Exam Constitutional: WDWN, healthy appearing, no apparent distress, obese Eyes: PERRL, EOMI Ears, Nose, Mouth, Throat: moist mucous membranes Cardiovascular: regular rate and rhythm, no murmurs, no rubs, no gallops Peripheral Pulses: 2+: dorsalis-pedis (R), dorsalis-pedis (L) Respiratory: clear to auscultate bilat, no crackles, no wheezes Gastrointestinal: normoactive bowel sounds Genitourinary: other (mild, lower suprapubic tenderness (query hernia)) Skin: no rashes, no edema Musculoskeletal: no muscular tenderness Neurologic: AAOx3, CN II-XII grossly intact Psychiatric: cooperative, interactive, following commands ICD10 Worksheet Patient Problems: Problems Problem Status Onset Chest pain Acute
[2017-05-27] MEDS: CARVEDILOL 3.125 MG TAB PO SCH (10:06)
[2017-05-27] MEDS: CLOPIDOGREL BISULFATE 75 MG TAB PO SCH (10:06)
[2017-05-27] MEDS: HYDROCHLOROTHIAZIDE 25 MG TAB PO SCH (10:07)
[2017-05-27] MEDS: ASPIRIN 81 MG CHEWABLE TAB PO SCH (10:07)
[2017-05-27] MEDS: ATORVASTATIN CALCIUM 40 MG TAB PO SCH (10:07)
[2017-05-27] MEDS: LOSARTAN POTASSIUM 50 MG TAB PO SCH (10:07)
--- NOTE | 2017-05-27 10:32 | HOSPPROG ---
Hospitalist Progress Note Assessment/Plan: 66 yo male with CAD and recent LAD stent placed in 02/2017 presents with ongoing chest pain, suspicious for anginal symptoms. Chest pain - EKG non-ischemic. Trops neg x3. Pt cath'd this am- no obstructive disease at LAD, but "jailed" septal perforators suspected source of angina. -start Imdur 30 mg daily, up-titrate as tolerated -cont DAPT, BB, statin Hypertension - poorly controlled on arrival. Improved with addition of low dose Norvasc. -dc Norvasc in favor of nitrates as above -consider up-titration of coreg at dc if BP's remain above goal Hyperlipidemia - cont statin KINZA - pt awaiting CPAP in outpt setting Full code home today >30 minutes Subjective: feels well, ready for dc. no events on tele. case d/w cardiology Objective: Vital Signs Temp Pulse Resp BP Pulse Ox 36.5 C 68 15 143/88 H 97 05/27/17 08:00 05/27/17 08:00 05/27/17 08:00 05/27/17 08:00 05/27/17 08:00 05/26/17 05/27/17 05/28/17 05:59 05:59 05:59 Intake Total 300 Output Total 525 Balance -225 PT 13.0 SEC (12.0-15.0) 05/25/17 11:40 INR 1.01 (0.83-1.16) 05/25/17 11:40 - Physical Exam Constitutional: no apparent distress, appears nourished Eyes: PERRL, anicteric sclera Ears, Nose, Mouth, Throat: moist mucous membranes, hearing normal Cardiovascular: regular rate and rhythym, no murmur, rub, or gallop, other ( groin c.d.i) Respiratory: no respiratory distress, no rales or rhonchi Gastrointestinal: normoactive bowel sounds, soft, non-tender abdomen Genitourinary: no bladder fullness, No caban in urethra Skin: warm, normal color Musculoskeletal: full muscle strength, no muscle tenderness Neurologic: AAOx3 Psychiatric: interacting appropriately ICD10 Worksheet Patient Problems: Problems Problem Status Onset Chest pain Acute
--- NOTE | 2017-05-27 15:47 | GDS ---
[f rep st] DISCHARGE SUMMARY DISCHARGE DIAGNOSES: 1. Angina felt secondary to occluded septal perforators from recent LAD stent. 2. History of coronary disease. 3. Hypertension. 4. Hyperlipidemia. 5. Inguinal hernia repair. HOSPITAL COURSE: Please see admission History and Physical by Dr. Connie Bye. The patient prese nted on the afternoon of the 2nd with chest pain of similar nature to his anginal equivalent. He willoughby d a dull ache in his chest which occasionally radiated to his left arm. He had negative troponins. He was seen by Cardiology. He was taken to a cath, showed evidence of patent stent leading to the conclusion the patient has septal perforators which were compromised at the stent implantation. He did have significant vascular occlusions of the LAD approaching 50%, but intervention was not made. He is discharged on aspirin, Plavix, beta efrem, statin, as well as Imdur (which is a new medicat ion for him). /[id number]/MODL
== END 2017-05-27 12:00 | disposition home or self-care (01) | DRG 287 ==
LOC: CED 11:26 → CEDHOLD 12:40 → UNDOADMOB 12:45 → F2W 14:15 → OBSVTOIN 05-26 20:01
PROVIDERS: ADMIT Hospitalist; ATTEND Hospitalist
PROC: B2111ZZ Fluoroscopy of Multiple Coronary Arteries using Low Osmolar Contrast (ICD-10-PCS; principal; 2017-05-26)
PROC: 4A023N7 Measurement of Cardiac Sampling and Pressure, Left Heart, Percutaneous Approach (ICD-10-PCS; principal; 2017-05-26)
PROC: B2151ZZ Fluoroscopy of Left Heart using Low Osmolar Contrast (ICD-10-PCS; principal; 2017-05-26)
DX: I20.8 Other forms of angina pectoris (principal); T82.897A Other specified complication of cardiac prosthetic devices, implants and grafts, initial encounter; I10 Essential (primary) hypertension; E78.5 Hyperlipidemia, unspecified; G47.33 Obstructive sleep apnea (adult) (pediatric)
CPT/HCPCS: 71010-PO; 80048-PO; 80076-PO; 82550-PO; 82553-PO; 83690-PO; 83735-PO; 83880-PO; 84484-PO; 85025-PO; 85378-PO; 85610-PO; 85730-PO; C1753; C1769; C1887; G0378; J0583; J1644; J2250; J3010; Q9967

== ENCOUNTER 2019-05-21 12:44 | Observation (INO) | payer OTHER | END 2019-05-22 12:05 | disposition home or self-care (01) | LOC: CED 12:44 → CEDHOLD 14:03 → F2W 15:55 ==